=== PATIENT | female | born 1940 | race Caucasian/White ===

== ENCOUNTER 2017-12-30 14:28 | Observation (INO) | payer OTHER, MEDICARE ==
[~2017-12-30] VITALS: Ht 160 cm; Wt 60.3 kg
--- NOTE | 2017-12-30 15:14 | ED SYNCOPE COMPLAINT ---
History of Present Illness General Chief Complaint: General Adult Stated Complaint: SIB MD FOR "BLACK OUT SPELLS" Source: patient, family Exam Limitations: no limitations Vital Signs & Intake/Output Vital Signs & Intake/Output Vital Signs Date Time Temp Pulse Resp B/P B/P Pulse O2 O2 Flow FiO2 Mean Ox Delivery Rate 12/30 1712 62 18 152/75 99 Room Air 12/30 1658 62 159/73 12/30 1627 99 Room Air 12/30 1432 97.5 66 20 182/72 98 Room Air Allergies Coded Allergies: MDX - PCN (penicillin) (PCN (PENICILLIN)) (Intermediate, SCRATCH TEST + 02/17/12 ) Uncoded Allergies: MOLD (Intermediate, SCRATCH TEST + 02/17/12) Triage Note: PT SENT TO ED BY DR VOGT FOR "BLACK OUT SPELLS" X A FEW DAYS. HAPPENS A FEW TIMES A DAY WITH INTERMITTENT PAIN IN HEAD. DENIES ACTUALLY PASSING OUT OR FALLING. Triage Nurses Notes Reviewed? yes HPI: Over the past few days patient has had a few episodes of near syncope. Patient states all of a sudden she'll feel very lightheaded and then hear radio sensation in her years and then get a pounding headache. The symptoms last a few minutes and then go away. Patient denies any chest pain or palpitations. There is no shortness of breath. There is no nausea or vomiting. There is no blurry vision. Patient has not passed out but her states that he has had to catch her twice. Past History Travel History Traveled to [place] past 21 day No Medical History Any Pertinent Medical History? see below for history Musculoskeletal: LYME Other Medical Hx: SCARLET FEVER A CHILD Tetanus Vaccine: 02/17/12 Surgical History Surgical History: non-contributory Psychosocial History What is your primary language Hungarian Tobacco Use: Quit >30 days ago ETOH Use: denies use Illicit Drug Use: denies illicit drug use Family History Hx Contributory? No Review of Systems Review of Systems Constitutional: Reports: no symptoms. EENTM: Reports: no symptoms. Respiratory: Reports: no symptoms. Cardiovascular: Reports: no symptoms. GI: Reports: no symptoms. Genitourinary: Reports: no symptoms. Musculoskeletal: Reports: no symptoms. Skin: Reports: no symptoms. Neurological/Psychological: Reports: see HPI, headache. All Other Systems: Reviewed and Negative Physical Exam Physical Exam General Appearance: well developed/nourished, alert, awake, anxious, mild distress Head: atraumatic, normal appearance Eyes: Bilateral: PERRL, EOMI. Ears, Nose, Throat: normal pharynx, normal ENT inspection, hearing grossly normal Neck: normal inspection, supple, full range of motion Respiratory: normal breath sounds, chest non-tender, no respiratory distress, lungs clear Cardiovascular: regular rate/rhythm, normal peripheral pulses Gastrointestinal: normal bowel sounds, soft, non-tender, no organomegaly Back: normal inspection, normal range of motion Extremities: normal inspection, normal capillary refill, normal range of motion, no edema Psychiatric: awake, alert, oriented x 3 Cranial Nerves: normal hearing, normal speech, PERRL Coordination/Gait: normal gait Motor/Sensory: no motor/sensory deficits Skin: intact, normal color, warm/dry Lymphatic: no anterior cervical anahi Core Measures ACS in differential dx? No CVA/TIA Diagnosis: No Sepsis Present: No Sepsis Focused Exam Completed? No Progress Differential Diagnosis: AMI, orthostatic syncope, pulmonary embolus, sick sinus syndrome Plan of Care: Orders Procedure Date/time Status Heart Healthy Diet 12/[address] in observation 12/30 1823 Active ED Holding Orders 12/30 1823 Active Vital Signs 12/30 1823 Active Code Status 12/30 1823 Active MISTAKE 12/30 1514 Active Telemetry/Information Systems Security Developer 12/30 1514 Active URINALYSIS 12/30 1514 Complete TROPONIN LEVEL 12/30 1514 Complete COMPREHENSIVE METABOLIC PANEL 12/30 1514 Complete CBC WITHOUT DIFFERENTIAL 12/30 1514 Complete EKG 12/30 1430 Active Laboratory Tests 12/30/17 1646: Urine Color YEL, Urine Clarity CLEAR, Urine pH 6.5, Ur Specific [place] 1.020, Urine Protein NEG, Urine Ketones NEG, Urine Nitrite NEG, Urine Bilirubin NEG, Urine Urobilinogen 0.2, Ur Leukocyte Esterase TRACE H, Ur Microscopic SEDIMENT EXAMINED, Urine RBC RARE, Urine WBC 1-3 H, Ur Epithelial Cells RARE, Urine Bacteria RARE H, Urine Mucus RARE, Urine Hemoglobin NEG, Urine Glucose NEG 12/30/17 1538: Anion Gap 10, Estimated GFR > 60, BUN/Creatinine Ratio 28.3 H, Glucose 94, Calcium 9.8, Total Bilirubin 0.9, AST 21, ALT 21, Alkaline Phosphatase 56, Troponin I < 0.01, Total Protein 7.1, Albumin 4.5, Globulin 2.6, Albumin/ Globulin Ratio 1.7, CBC w Diff NO MAN DIFF REQ, RBC 4.88, MCV 89.9, MCH 30.2, MCHC 33.5, RDW 13.1, MPV 8.3, Gran % 52.8, Lymphocytes % 34.4, Monocytes % 10.2 H, Eosinophils % 1.8, Basophils % 0.8, Absolute Granulocytes 3.9, Absolute Lymphocytes 2.6, Absolute Monocytes 0.8 H, Absolute Eosinophils 0.1, Absolute Basophils 0.1 Initial ED EKG: NSR, no ST T wave changes Comments: Discussed with Dr. Youssef, patient to be placed in telemetry observation. Departure Departure Disposition: STILL A PATIENT Condition: Stable Clinical Impression Primary Impression: Near syncope Referrals: Vogt Aquiles ALEXANDER (PCP/Family) Departure Forms: Customer Survey General Discharge Information Observation Note Spoke With: Abdiel ALEXANDER,Nathaniel Physician Advisor Notified: YARELI ALEXANEDR,AQUILES [address] Patient In: Non-ED OBS Care Area Rationale for Observation: My rational for observation is as follows [telemetry monitoring, serial enzymes, cardiology evaluation].
[2017-12-30 15:47] LABS: ABSOLUTE BASOPHIL COUNT 0.1 /CUMM (0.0-0.2); ABSOLUTE EOSINOPHIL COUNT 0.1 /CUMM (0.0-0.7); ABSOLUTE GRANULOCYTE CT 3.9 /CUMM (1.4-6.5); ABSOLUTE LYMPH COUNT 2.6 /CUMM (1.2-3.4); ABSOLUTE MONOCYTE COUNT 0.8 /CUMM (0.10-0.60); BASOPHIL % 0.8 % (0.0-2.0); EOSINOPHIL % 1.8 % (0-5); GRANULOCYTE % 52.8 % (42.2-75.2); HEMATOCRIT 43.9 % (37-47); MEAN CORPUSCULAR HGB 30.2 PG (27.0-31.0); MEAN CORPUSCULAR HGB CONC 33.5 G/DL (33.0-37.0); MEAN CORPUSCULAR VOLUME 89.9 FL (81.0-99.0); MEAN PLATELET VOLUME 8.3 FL (7.4-10.4); PLATELET COUNT 295 /CUMM (130-400); RBC DISTRIBUTION WIDTH 13.1 % (11.5-14.5); RED BLOOD CELL CT 4.88 /CUMM (4.20-5.40); WHITE BLOOD CELL COUNT 7.5 /CUMM (4.8-10.8)
[2017-12-30] MEDS ORDERED: VITAMIN B-121000 MC3 PO (18:33)
[2017-12-30] MEDS ORDERED: MULTIVITAMINS1 EAC9 PO (18:33)
--- NOTE | 2017-12-30 20:31 | History & Physical ---
Naya aGrcia MD 12/30/172028: General Information and HPI MD Statement: I have seen and personally examined GENNA STONE and documented this H&P. The patient is a 77 year old F who presented with a patient stated chief complaint of [dizziness]. Source of Information: patient Exam Limitations: no limitations History of Present Illness: 77-year-old female with past medical history of Lyme disease, skin cancer, right leg varicose vein, prediabetes came to [facility] with complaints of dizziness for the past 4 days. Apparently patient was in usual state of health until a week ago. Patient was doing heavy yard work week ago and felt very weak after that. Patient was sitting in a meeting 3 days ago and felt the room was spinning associated with frontal headache for 5 weighted with right ear pain which continued for 5 minutes. After the dizzy spell patient went home and felt similar episodes of spells multiple times in the past 2 days associated with imbalance [feeling week in his legs] for the past 2 days. Patient took Tylenol yesterday and felt better. The spells were not associated with numbness, tingling, weakness, loss of consciousness, fall, chest pain, chest discomfort. Patient has been feeling dizzy spells past 5 years on and off which she attributes to high normal blood sugar. Patient also had episodes of palpitations and skipped beats with shortness of breath recently. Patient was evaluated for the same in 2012 by cytotechnologist/cytology supervisor who suggested that she has bradycardia and might pacemaker in the future. Patient never followed up with the cytotechnologist/cytology supervisor. Allergies/Medications Home Med list Cyanocobalamin (Vitamin B-12) (Unknown Strength) TABLET (Unknown Dose) PO DAILY SUPPLEMENT (Reported) Multiple Vitamin (Multivitamins) 1 EACH TABLET 1 TAB PO EOD SUPPLEMENT ( Reported) Compliance With Home Meds: FAIR Past History Travel History Traveled to [place] past 21 day No Medical History Neurological: NONE Cardiovascular: NONE Respiratory: NONE Gastrointestinal: NONE Hepatic: NONE Renal: NONE Musculoskeletal: LYME Other Medical Hx: SCARLET FEVER A CHILD Tetanus Vaccine: 02/17/12 Surgical History Surgical History: non-contributory ECHO Results (as available) EF% 65 Past Family/Social History Family History Relations & Conditions if any MOTHER (Heart failure). Psychosocial History Where do you live? Home Who Do You Live With? spouse Services at Home: None Primary Language: Italian Smoking Status: Former Smoker ETOH Use: occasional use Illicit Drug Use: denies illicit drug use Functional Ability ADLs Independent: dressing, eating, toileting, bathing. Ambulation: independent IADLs Independent: shopping, housework, finances, food prep, telephone, transportation , medication admin. Review of Systems Review of Systems Constitutional: Reports: weakness. EENTM: Reports: ear pain. Cardiovascular: Reports: palpitations. Respiratory: Reports: short of breath. GI: Reports: no symptoms. Genitourinary: Reports: no symptoms. Musculoskeletal: Reports: no symptoms. Skin: Reports: no symptoms. Neurological/Psychological: Reports: headache (dizziness). Exam & Diagnostic Data Last 24 Hrs of Vital Signs/I&O Vital Signs Date Time Temp Pulse Resp B/P B/P Pulse O2 O2 Flow FiO2 Mean Ox Delivery Rate 12/30 2046 70 18 152/73 99 Room Air 12/30 1911 89 18 172/69 98 Room Air 12/30 1712 62 18 152/75 99 Room Air 12/30 1658 62 159/73 12/30 1627 99 Room Air 12/30 1432 97.5 66 20 182/72 98 Room Air Intake & Output 12/30 1600 12/30 0800 12/30 0000 Intake Total Output Total Balance Patient 127 lb Weight Weight Reported by Patient Measurement Method Physical Exam General Appearance Alert, Oriented X3, Cooperative, No Acute Distress Skin No Rashes HEENT both ear-wax Cardiovascular Regular Rate, Normal S1, Normal S2, No Murmurs Lungs Clear to Auscultation Abdomen Normal Bowel Sounds, Soft, No Tenderness, No Hepatospenomegaly Neurological Normal Gait, Normal Speech, Strength at 5/5 X4 Ext, Normal Tone, Sensation Intact, Cranial Nerves 3-12 NL Extremities No Clubbing Last 24 Hrs of Labs/Billy: Laboratory Tests 12/30/17 1646: Urine Color YEL, Urine Clarity CLEAR, Urine pH 6.5, Ur Specific [place] 1.020, Urine Protein NEG, Urine Ketones NEG, Urine Nitrite NEG, Urine Bilirubin NEG, Urine Urobilinogen 0.2, Ur Leukocyte Esterase TRACE H, Ur Microscopic SEDIMENT EXAMINED, Urine RBC RARE, Urine WBC 1-3 H, Ur Epithelial Cells RARE, Urine Bacteria RARE H, Urine Mucus RARE, Urine Hemoglobin NEG, Urine Glucose NEG 12/30/17 1538: Anion Gap 10, Estimated GFR > 60, BUN/Creatinine Ratio 28.3 H, Glucose 94, Calcium 9.8, Total Bilirubin 0.9, AST 21, ALT 21, Alkaline Phosphatase 56, Troponin I < 0.01, Total Protein 7.1, Albumin 4.5, Globulin 2.6, Albumin/ Globulin Ratio 1.7, TSH Pending, CBC w Diff NO MAN DIFF REQ, RBC 4.88, MCV 89.9, MCH 30.2, MCHC 33.5, RDW 13.1, MPV 8.3, Gran % 52.8, Lymphocytes % 34.4, Monocytes % 10.2 H, Eosinophils % 1.8, Basophils % 0.8, Absolute Granulocytes 3.9, Absolute Lymphocytes 2.6, Absolute Monocytes 0.8 H, Absolute Eosinophils 0.1, Absolute Basophils 0.1 Diagnostic Data EKG Results Normal sinus rhythm-normal axis. Heart rate 65 Assessment/Plan Assessment: 77-year-old female with past medical history of Lyme disease, skin cancer, right leg varicose vein, prediabetes came to [facility] with complaints of dizziness for the past 4 days. Patient was placed on observation in telemetry for the same. Admission vitals Temperature 97.5, pulse rate 89, respiratory rate 18, blood pressure 159/73---> 172/69, saturating 99 at room air. Admission labs WBC 7.5, hemoglobin 40.7, sodium 139, potassium 4.3, BUN 17, creatinine 0.6, troponin 0.01, calcium .8 Echocardiogram 2012 Left ventricle ejection fraction 65% with abnormal relaxation filling pattern of the left ventricle for age [stage I diastolic dysfunction]. No obvious regional wall motion abnormalities. Problem list 1. Vertigo 2. Presyncope Assessment and plan Patient complains of vertigo, not associated with any recent upper respiratory tract infection, hearing loss, nystagmus, neurological symptoms. This vertigo can be secondary due to benign paroxysmal positional vertigo, vestibular migraine,Though patient denies history of migraines. Patient also gives symptoms of presyncope, malignant arrhythmia needs to be ruled out. We will place her under observation in telemetry for continuous telemetry monitoring and get cardiology consult in a.m. and repeat echocardiogram to rule out any structural abnormalities. If there is any neurological symptoms we will take urgent CT of the head/MRI. Monitor blood pressure. Code-full code Diet-regular diet DVT prophylaxis-heparin subcutaneous As Ranked By This Provider Problem List: 1. Near syncope 2. Vertigo Core Measures/Misc (05/29) Acute Coronary Syndrome ACS Diagnosis: No Congestive Heart Failure Congestive Heart Failure Diagnosis No Cerebrovascular Accident CVA/TIA Diagnosis: No VTE (View Protocol) VTE Risk Factors Age>40 No Mechanical VTE Prophylaxis d/t Other No VTE Pharm Prophylaxis d/t Other Sepsis (View protocol) Sepsis Present: No Eliecer Garcia MD 12/30/172032: Resident Review Statement Resident Statement: examined this patient, discussed with hospital intern, agreed with hospital intern, reviewed EMR data (avail) Other Findings: 77-year-old female with past medical history significant for prediabetes, chronic Lyme disease/meningitis, history of skin cancer status post surgery 3 weeks ago at [facility], 2011 colonoscopy identifying diverticuli and hemorrhoids, and right leg varicose veins came to emergency department with chief complain of presyncope. As per the , patient has been suggested a pacemaker for her low heart rate. Review of system positive for skipped beats, palpitations, loss of balance with dizziness, headaches and pain in right ear. Most of the episodes are brief and stays for seconds, longest one being 5 minutes on Tuesday. No significant visual changes, or extremity weakness. Vitals in emergency department patient afebrile, no significant tachycardia, no tachypnea, systolic blood pressure 175-182 and diastolic 69-75, oxygen saturation of 99% on room air. Negative orthostatics On examination patient was alert and oriented to time person and place not in any acute distress comfortably lying in the bed. Pupils equal and reactive to light, no disorder of extraocular eye movements, patient did feel dizzy while looking up, cranials intact, intact sensation and motor strength in all 4 extremities, no nystagmus, normal reflexes, normal cerebellar function and gait, S1 and S2 audible without any irregularity in the rhythm, normal lung and abdominal examination. Labs significant for leukocytosis, hemoglobin 14.7 hematocrit 43.9, platelets 295, no significant electrolyte abnormality, negative troponin, UA positive for 1-3 WBCs, trace leukocyte esterase positive. EKG showed normal sinus rhythm, heart rate of 66, QTC 406 normal CA interval Patient was placed in observation for the management of following problems Presyncope h/o Bradycardia Cause of patient's recurrent symptoms of presyncope is not entirely clear. It could be secondary to benign positional vertigo given the duration of symptoms for few seconds and worsening of symptoms while looking up. She denies any hearing deficit, tinnitus or recent upper respiratory tract infection. The other possibility to keep in mind his cardiac arrhythmias as patient has been evaluated in the past and known to have bradycardia after heart monitoring and a suggestion of pacemaker was advised. With h/o chronic lyme disease underlying heart blocks need to be ruled out. We will keep the patient on telemetry monitoring and obtain another set of troponin and EKGs. We'll also obtain an echocardiogram as last echocardiogram was in 2012 which showed stage I diastolic dysfunction with an ejection fraction of 65% and right ventricle systolic pressure of 30. Orthostatics negative. In case no significant arrhythmias are noticed overnight, obtain PT consult for vestibular rehabilitation. We will check B12, TSH, Vitamin D, Folic Acid and TSH. Consider imaging of brain if she develops any neurological deficits, to rule out vertebrobasilar stroke. Uncontrolled HTN According to the patient she has never been diagnosed with hypertension. She follows up with her primary care doctor once a year and most of the time blood pressure has been 120s. Patient's blood pressure was higher in emergency department and she attributed it towards then requirement and watching TV. Repeat blood pressure if still high, we will start on low-dose of amlodipine instead of hydrochlorothiazide because of ongoing dizziness and avoid beta- blockers because of tachycardia. An echocardiogram has been ordered. Patient is full code Patient is on regular diet Patient is on pain management Patient is on heparin for DVT prophylaxis Abdiel ALEXANDER, [facility] 12/30/17 2300: General Information and HPI Allergies/Medications Allergies: Coded Allergies: Penicillins (POSITIVE ALLERGY TEST 12/30/17) Uncoded Allergies: FLU VACCINE (Severe, ANAPHYLAXIS 12/30/17) MOLD (Intermediate, SCRATCH TEST + 02/17/12) Attending MD Review Statement Attending Statement Attending MD Statement: examined this patient, discuss w/resident/PA/FIELD MECHANIC/SITE LEAD, agreed w/resident/PA/FIELD MECHANIC/SITE LEAD, discussed with family, reviewed images, amended to note Attending Assessment/Plan: 77 yo F with h/o Lyme meningitis, prediabetes, 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 About 3 days ago, she felt dizziness, room spinning with ringing in the ears, pounding headache and nausea lasting about 5 minutes. She has had recurrent short episodes since then but denies LOC or fall. Her did have to catch her twice to prevent a fall. She continues to feel lightheaded in between the spells. She feels off balance and weak in her legs. Getting up from seated position could precipitate a spell, but she is unable to identify any other precipitating factor. She has been evaluated by a cytotechnologist/cytology supervisor (?Dr. Albert) 2 years ago with an stress test and holter, and was told she has a 'slow heart beat' and may need a pacemaker. But she never followed up. She does report feeling skipped beats. Patient takes no prescription medications. Vitals stable, HR around 60's, orthostats were negative. Exam unremarkable nonfocal neuro. Labs unremarkable. Troponin negative. EKG: sinus rhythm @ 63/min , Qtc 406, no acute changes. Echo (2012): EF 65%, stage 1 diastolic dysfunction. Assessment and plan: 1. Presyncopal episodes 2. Rule out arrhythmias 3. History of Lyme disease 4. Essential hypertension - not on any meds 5. Prediabetes - 23 hour observation on Telemetry - Watch for bradyarrhythmias - Serial EKG and troponin - Obtain echocardiogram - Cardio consult - Obtain previous Holter and stress results - Check TSH, free T4 - If BP remains elevated, will consider amlodipine or hydralazine. Avoid beta blockers until we have ruled out bradyarrhythmias. DVT ppx Lovenox. Full code. Observation Initial Note - I have personally examined JOLENEHERIBERTOGENNA Heath on 12/30/17 at 2300. The disposition of GENNA STONE is uncertain at this time and before a determination can be made, she requires a period of observation for the following reasons [Near syncope]
[2017-12-30 22:30] VITALS: BP 178/80
--- NOTE | 2017-12-31 04:07 | PN-Observation ---
Wellington Ramires MD,Eliecer 12/31/17 0407: Observation Note Observation Note _ I have personally examined GENNA STONE. her disposition is uncertain at this time. Before a determination can be made, she requires continued observation for the following reasons [pre-syncope and uncontrolled HTN]. Assessment/Plan Medical Assessment: 77-year-old female with past medical history significant for prediabetes, chronic Lyme disease/meningitis, history of skin cancer status post surgery 3 weeks ago at [facility], 2011 colonoscopy identifying diverticuli and hemorrhoids, and right leg varicose veins came to emergency department with chief complain of presyncope. As per the , patient has been suggested a pacemaker for her low heart rate. Review of system positive for skipped beats, palpitations, loss of balance with dizziness, headaches and pain in right ear. Most of the episodes are brief and stays for seconds, longest one being 5 minutes on Tuesday. No significant visual changes, or extremity weakness. Overnight, patient afebrile, no significant tachycardia, sinus bradycardia overnight. No tachypnea, systolic blood pressure 178-and diastolic 152, oxygen saturation of 99% on room air. Negative orthostatics Patient was placed in observation for the management of following problems Presyncope and h/o Bradycardia Cause of patient's recurrent symptoms of presyncope is not entirely clear. It could be secondary to benign positional vertigo given the duration of symptoms for few seconds and worsening of symptoms while looking up. She denies any hearing deficit, tinnitus or recent upper respiratory tract infection. The other possibility to keep in mind his cardiac arrhythmias as patient has been evaluated in the past and known to have bradycardia after heart monitoring and a suggestion of pacemaker was advised. We will keep the patient on telemetry monitoring and obtain another set of troponin and EKGs. We'll also obtain an echocardiogram as last echocardiogram was in 2012 which showed stage I diastolic dysfunction with an ejection fraction of 65% and right ventricle systolic pressure of 30. Orthostatics negative. Significant bradycardias, noticed overnight. With h/o chronic lyme disease underlying heart blocks need to be ruled out. obtain PT consult for vestibular rehabilitation. Consider imaging of brain if she develops any neurological deficits, to rule out vertebrobasilar stroke. Uncontrolled HTN According to the patient she has never been diagnosed with hypertension. She follows up with her primary care doctor once a year and most of the time blood pressure has been 120s. Patient's blood pressure was higher in emergency department and she attributed it towards then requirement and watching TV. Repeat blood pressure still high. This started on low-dose of amlodipine instead of hydrochlorothiazide because of ongoing dizziness. An echocardiogram has been ordered. Patient is full code Patient is on regular diet Patient is on pain management Patient is on heparin for DVT prophylaxis Problem List: 1. Vertigo 2. Near syncope DVT/Prophylaxis: pharmacological Subjective Follow-up For: Presyncope Uncontrolled hypertension Tele-Events Since Last Visit: Episodes of sinus bradycardia overnight. Patient's heart rate remained mostly between 50s and 60s. Subjective: Patient remained afebrile overnight. Blood pressure systolic in 150s to 170s and diastolic in 80s Review of Systems Constitutional: Denies: chills, fever. Cardiovascular: Reports: palpitations. Denies: chest pain. Respiratory: Denies: short of breath. Gastrointestinal: Denies: constipation, bloody stool. Genitourinary: Denies: dysuria. Objective Last 24 Hrs of Vital Signs/I&O Vital Signs Date Time Temp Pulse Resp B/P B/P Pulse O2 O2 Flow FiO2 Mean Ox Delivery Rate 12/30 2235 Room Air 12/30 223 97.8 62 18 178/80 95 Room Air 12/30 2046 70 18 152/73 99 Room Air 12/30 1911 89 18 172/69 98 Room Air 12/30 1712 62 18 152/75 99 Room Air 12/30 1658 62 159/73 12/30 1627 99 Room Air 12/30 1432 97.5 66 20 182/72 98 Room Air Intake & Output 12/31 0800 12/31 0000 12/30 1600 Intake Total 60 Output Total Balance 60 Intake, Oral 60 Patient 133 lb 127 lb Weight Weight Reported by Patient Measurement Method Physical Exam General Appearance: Alert, Oriented X3, Cooperative, No Acute Distress Skin: No Breakdown HEENT: Atraumatic, PERRLA, EOMI Neck: No JVD Cardiovascular: Regular Rate, Normal S1, Normal S2, No Murmurs Lungs: Clear to Auscultation, Normal Air Movement Abdomen: Normal Bowel Sounds, Soft, No Tenderness Neurological: Normal Gait, Normal Speech, Strength at 5/5 X4 Ext, Normal Tone, Sensation Intact, Cranial Nerves 3-12 NL, Reflexes 2+ Extremities: No Edema Current Medications: Current Medications Sig/Raul Start time Last Medication Dose Route Stop Time Status Admin Acetaminophen 650 MG Q6 PRN 12/30 2245 AC PO Amlodipine Besylate 5 MG DAILY 12/31 0900 UNVr PO Heparin Sodium 5,000 UNIT Q8 12/30 2234 AC (Porcine) SC Last 24 Hrs of Labs/Mics: Laboratory Tests 12/30/17 2240: Troponin I < 0.01 12/30/17 1646: Urine Color YEL, Urine Clarity CLEAR, Urine pH 6.5, Ur Specific [place] 1.020, Urine Protein NEG, Urine Ketones NEG, Urine Nitrite NEG, Urine Bilirubin NEG, Urine Urobilinogen 0.2, Ur Leukocyte Esterase TRACE H, Ur Microscopic SEDIMENT EXAMINED, Urine RBC RARE, Urine WBC 1-3 H, Ur Epithelial Cells RARE, Urine Bacteria RARE H, Urine Mucus RARE, Urine Hemoglobin NEG, Urine Glucose NEG 12/30/17 1538: Anion Gap 10, Estimated GFR > 60, BUN/Creatinine Ratio 28.3 H, Glucose 94, Calcium 9.8, Total Bilirubin 0.9, AST 21, ALT 21, Alkaline Phosphatase 56, Troponin I < 0.01, Total Protein 7.1, Albumin 4.5, Globulin 2.6, Albumin/ Globulin Ratio 1.7, Vitamin B12 Pending, 25-OH Vitamin D Total 21.5 L, TSH 1.680, CBC w Diff NO MAN DIFF REQ, RBC 4.88, MCV 89.9, MCH 30.2, MCHC 33.5, RDW 13.1, MPV 8.3, Gran % 52.8, Lymphocytes % 34.4, Monocytes % 10.2 H, Eosinophils % 1.8, Basophils % 0.8, Absolute Granulocytes 3.9, Absolute Lymphocytes 2.6, Absolute Monocytes 0.8 H, Absolute Eosinophils 0.1, Absolute Basophils 0.1 Zurdo Fair 12/31/17 0923: Attending Addendum Attending Brief Note Patient here for dizziness epsiode placed in observation status for telemetry monitoring. No new complaints. She has appoitnemtn at [place] in Tuesday. Plan for cardio consult, serial cardiac enzymes negative. orthostats. gi/dvt prophyalxis full code.
[2017-12-31 06:37] VITALS: BP 130/60
[2017-12-31 08:33] LABS: ABSOLUTE BASOPHIL COUNT 0 /CUMM (0.0-0.2); ABSOLUTE EOSINOPHIL COUNT 0.2 /CUMM (0.0-0.7); ABSOLUTE LYMPH COUNT 2.5 /CUMM (1.2-3.4); ABSOLUTE MONOCYTE COUNT 0.6 /CUMM (0.10-0.60); BASOPHIL % 0.4 % (0.0-2.0); EOSINOPHIL % 3.1 % (0-5); GRANULOCYTE % 47.4 % (42.2-75.2); HEMATOCRIT 40.2 % (37-47); MEAN CORPUSCULAR HGB 30.2 PG (27.0-31.0); MEAN CORPUSCULAR HGB CONC 34.1 G/DL (33.0-37.0); MEAN CORPUSCULAR VOLUME 88.4 FL (81.0-99.0); MEAN PLATELET VOLUME 8.7 FL (7.4-10.4); PLATELET COUNT 273 /CUMM (130-400); RBC DISTRIBUTION WIDTH 13.1 % (11.5-14.5); RED BLOOD CELL CT 4.54 /CUMM (4.20-5.40); WHITE BLOOD CELL COUNT 6.4 /CUMM (4.8-10.8)
[2017-12-31 14:40] VITALS: BP 128/60
--- NOTE | 2017-12-31 17:28 | Cons- Cardiology ---
General Information and HPI Consulting Request Date of Consult: 12/31/17 Requested By: Abdiel ALEXANDER,Nathaniel History of Present Illness: This patient is a 77 year old female with history of Lyme disease and pre- diabetes. Over the past few days this patient has noted a dizzy sensation although she has not experienced any true syncope. She recalls sitting at a meeting when the room began to spin. She does feel better if she remains still after she begins to feel this way although there is no definite exacerbation by bending or movement of her head to suggest a labyrinthitis. There are no associated palpitations with this dizziness. Otherwise the patient denies chest pain, pressure, tightness or shortness of breath. It should be noted that this patient has had very brief palpitations in the past described as a fluttering for a second or two. This is a very longstanding symptom that she has had for years and was not noted at the time of her current episode of dizziness. It should also be noted that this patient has had a slow heart rate that she has known about for a long time which has been asymptomatic. Allergies/Medications Allergies: Coded Allergies: influenza virus vaccine ts 9905-2285 (4 yr up) (From FLUVIRIN [id number] (PF)) ( Severe, FLU VACCINE - ANAPHYLAXIS 12/31/17) influenza virus vaccine tv splt 2012- (4 yr,up) (From FLUVIRIN) (Severe, FLU VACCINE - ANAPHYLAXIS 12/31/17) mold (Intermediate, MOLD - SCRATCH TEST + 12/31/17) Penicillins (POSITIVE ALLERGY TEST 12/30/17) Home Med List: Cyanocobalamin (Vitamin B-12) (Unknown Strength) TABLET (Unknown Dose) PO DAILY SUPPLEMENT (Reported) Multiple Vitamin (Multivitamins) 1 EACH TABLET 1 TAB PO EOD SUPPLEMENT ( Reported) Review of Systems Review of Systems: headache Past History Travel History Traveled to [place] past 21 day No Medical History Blood Transfusion Hx: No Neurological: NONE EENT: NONE Cardiovascular: NONE Respiratory: NONE Gastrointestinal: NONE Hepatic: NONE Renal: NONE Musculoskeletal: LYME Psychiatric: DEPRESSION-SEASONAL Endocrine: LOW BLOOD SUGAR Blood Disorders: NONE Cancer(s): NONE RN OCCUPATIONAL HEALTH/Reproductive: NONE 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 Psychosocial History Where Do You Live? Home Who Do You Live With? spouse Services at Home: None Primary Language: Kyrgyz Smoking Status: Former Smoker ETOH Use: occasional use Illicit Drug Use: denies illicit drug use Functional Ability ADLs Independent: dressing, eating, toileting, bathing. Ambulation: independent IADLs Independent: shopping, housework, finances, food prep, telephone, transportation , medication admin. ECHO Results (as available) EF% 65 Exam & Diagnostic Data Vital Signs and I&O Vital Signs Date Time Temp Pulse Resp B/P B/P Pulse O2 O2 Flow FiO2 Mean Ox Delivery Rate 12/31 1440 97.8 65 20 128/60 96 Room Air 12/31 0924 134/70 12/31 0637 97.9 67 20 130/60 96 Room Air 12/30 2235 Room Air 12/30 2230 97.8 62 18 178/80 95 Room Air 12/30 2046 70 18 152/73 99 Room Air 12/30 1911 89 18 172/69 98 Room Air Intake & Output 12/31 1600 12/31 0800 12/31 0000 12/30 1600 12/30 0800 12/30 0000 Intake Total 240 60 Output Total Balance 240 60 Intake, Oral 240 60 Number 0 Bowel Movements Patient 133 lb 127 lb Weight Weight Reported by Patient Measurement Method Physical Exam: General: WD/WN female in NAD; alert and oriented x 3 HEENT: NC/AT, PERRL, EOMI Neck: no JVD, no carotid bruit Heart: RRR w/o murmur Lungs: clear bilaterally ABdomen: soft, NT, +be bowel sounds Extemities: no edema Assessment/Plan Assessment/Plan * This patient has dizziness as well as bradycardia. We will obtain an echocardiogram to assess for any structural heart disease. We will also check a Lyme titer, TSH and free T4. * Monitor this patient on telemetry for symptomatic bradycardia. If present, this patient will need a permanent pacemaker. I have a lower suspicion of a labyrinthitis. Consult Acknowledgment - Thank you for your consult request.
[2017-12-31 22:48] VITALS: BP 118/60
[2018-01-01 06:48] VITALS: BP 116/60
[2018-01-01 09:50] VITALS: BP 116/60
--- NOTE | 2018-01-01 12:39 | PN- Housestaff ---
Kendra ALEXANDER,Michelle 01/01/18 1238: Subjective Follow-up For: Presyncope and history of bradycardia Uncontrolled hypertension Complaints: no complaints Tele-Events Since Last Visit: Normal sinus rhythm 55-70 Subjective: No overnight events, patient still complains of lightheadedness but denies chest pain, shortness of breath. Patient is eager to leave today as she has a skin biopsy appointment tomorrow at [facility]. Review of Systems Constitutional: Reports: no symptoms. EENTM: Reports: no symptoms. Cardiovascular: Reports: no symptoms. Respiratory: Reports: cough. Skin: Reports: lesions. Neurological/Psychological: Reports: see HPI (lightheadedness). Objective Last 24 Hrs of Vital Signs/I&O Vital Signs Date Time Temp Pulse Resp B/P B/P Pulse O2 O2 Flow FiO2 Mean Ox Delivery Rate 01/01 0950 76 116/60 01/01 0648 98.4 76 20 116/60 96 Room Air 12/31 2248 99.0 67 16 118/60 94 Room Air Intake & Output 01/01 1600 01/01 0800 01/01 0000 Intake Total 240 240 Output Total Balance 240 240 Intake, Oral 240 240 Number 0 Bowel Movements Physical Exam General Appearance: Alert, Oriented X3, Cooperative, No Acute Distress Skin: patient has right nare bandage with skin biopsy lesion underneath. Skin Temp/Moisture Exam: Warm/Dry Sepsis Skin Exam (color): Normal for Ethnicity HEENT: Atraumatic, PERRLA, EOMI, Mucous Membr. moist/pink Cardiovascular: Regular Rate, Normal S1, Normal S2, No Murmurs Lungs: Clear to Auscultation, Normal Air Movement Abdomen: Normal Bowel Sounds, Soft, No Tenderness Neurological: Normal Speech Extremities: No Clubbing, No Cyanosis, No Edema, Normal Pulses, No Tenderness/ Swelling Vascular: Normal Pulses, Pulses Symmetrical Current Medications: Current Medications Sig/Raul Start time Last Medication Dose Route Stop Time Status Admin Acetaminophen 650 MG Q6 PRN 12/30 2245 DCD PO Amlodipine Besylate 5 MG DAILY 12/31 0900 DCD 12/31 PO 0924 Heparin Sodium 5,000 UNIT Q8 12/30 2234 DCD (Porcine) SC Assessment/Plan Assessment: 77-year-old female with past medical history significant for prediabetes, chronic Lyme disease/meningitis, history of skin cancer status post surgery 3 weeks ago at [facility], 2011 colonoscopy identifying diverticuli and hemorrhoids, and right leg varicose veins came to emergency department with chief complain of presyncope. As per the , patient has been suggested a pacemaker for her low heart rate. Review of system positive for skipped beats, palpitations, loss of balance with dizziness, headaches and pain in right ear. Most of the episodes are brief and stays for seconds, longest one being 5 minutes on Tuesday. No significant visual changes, or extremity weakness. Patient was placed in observation for the management of following problems Presyncope and h/o Bradycardia Cause of patient's recurrent symptoms of presyncope is not entirely clear. It could be secondary to benign positional vertigo given the duration of symptoms for few seconds and worsening of symptoms while looking up. She denies any hearing deficit, tinnitus or recent upper respiratory tract infection but continues to have very mild symptoms of dizziness and lightheadedness, no obvious correlation betweenn it and her bradycardia. Last echocardiogram was in 2012 which showed stage I diastolic dysfunction with an ejection fraction of 65% and right ventricle systolic pressure of 30. Orthostatics negative. Continued to be bradycardic overnight. With h/o chronic lyme disease underlying heart blocks need to be ruled out. Thyroid tests normal. -PT consult for vestibular rehabilitation. -Follow up echo -Follow up lyme titers -Consider imaging of brain if she develops any neurological deficits, to rule out vertebrobasilar stroke. Currently no neurological deficits. -As per cardiology patient is cleared to be sent home. She likely has a minor viral symptom that is resolving. She is to follow up outpatient. Uncontrolled HTN According to the patient she has never been diagnosed with hypertension. She follows up with her primary care doctor once a year and most of the time blood pressure has been 120s. Patient's blood pressure was higher in emergency department and she attributed it towards then requirement and watching TV. Overnight blood pressure well controlled 116/60. She is started on amlodipine instead of hydrochlorothiazide because of ongoing dizziness. -Discharge on 5mg amlodipine -Blood pressure test kit on dc Patient is full code Patient is on regular diet Patient is on pain management Patient is on heparin for DVT prophylaxis Problem List: 1. Vertigo 2. Near syncope Pain Ratin Pain Location: na Pain Goal: Remain pain free Pain Plan: na Tomorrow's Labs & Rationales: cbc bep Zurdo Fair 01/01/18 1329: Attending MD Review Statement Attending Statement Attending MD Statement: examined this patient, discuss w/resident/PA/UMBRELLA SUPERVISOR, agreed w/resident/PA/UMBRELLA SUPERVISOR, discussed with family, reviewed EMR data (avail), discussed with nursing, discussed with case mgmt, reviewed images, amended to note Attending Assessment/Plan: Patient here for dizziness epsiode placed in observation status for telemetry monitoring. No new complaints. cardio consulted, serial cardiac enzymes negative for LA. Overnight HR 60s. Wishes to leave home. gi/dvt prophyalxis full code.
[2018-01-01] MEDS ORDERED: AMLODIPINE BESYL5 M1 PO (14:16)
[2018-01-01] MEDS ORDERED: BLOOD PRESSURE1 EAC1 N (14:17)
--- NOTE | 2018-01-01 14:20 | Patient Discharge Instructions ---
Discharge Instructions General Discharge Information You were seen/treated for: Slow heart rate You had these procedures: monitoring on the quality assurance monitor final Watch for these problems: 1. dizziness 2. nausea or vomiting 3. chest pain 4. shortness of breath Special Instructions: 1. Please check your BP as we discussed 2. Please follow up with your primary care provider in one week 3. You will likely need an outpatient echocardiogram 4. Your Lyme test is still pending. Please follow up with your PCP. Diet Continue normal diet: Yes Acute Coronary Syndrome Inclusion Criteria At DC or during hospital stay patient has or had the following: ACS DIAGNOSIS No Discharge Core Measures Meds if any: Prescribed or Continued at Discharge Meds if any: NOT Prescribed or Continued at Discharge Congestive Heart Failure Inclusion Criteria At DC or during hospital stay patient has or had the following: CHF DIAGNOSIS No Discharge Core Measures Meds if any: Prescribed or Continued at Discharge Meds if any: NOT Prescribed or Continued at Discharge Cerebrovascular accident Inclusion Criteria At DC or during hospital stay patient has or had the following: CVA/TIA Diagnosis No Discharge Core Measures Meds if any: Prescribed or Continued at Discharge Meds if any: NOT Prescribed or Continued at Discharge Venous thromboembolism Inclusion Criteria VTE Diagnosis No VTE Type NONE VTE Confirmed by (Test) NONE Discharge Core Measures - Per Current guidelines, there needs to be overlap - treatment for the first 5 days of Warfarin therapy. - If discharged on Warfarin prior to 5 days of - overlap therapy, the patient will need to be - assessed for post discharge needs including - *Post discharge parental anticoagulation - *Warfarin and/or parental anticoagulation education - *Follow up date to check INR post discharge At least 5 days overlap therapy as Inpatient No Meds if any: Prescribed or Continued at Discharge Note: Overlap Therapy is Warfarin and Anticoagulant Meds if any: NOT Prescribed or Continued at Discharge
--- NOTE | 2018-01-01 14:51 | PN- Cardiology ---
Subjective Subjective: * No complaints * mild bradycardia at night when presumably asleep. No bradycardia is association with dizziness. Objective Vital Signs and I&Os Vital Signs Date Time Temp Pulse Resp B/P B/P Pulse O2 O2 Flow FiO2 Mean Ox Delivery Rate 01/01 0950 76 116/60 01/01 0648 98.4 76 20 116/60 96 Room Air 12/31 2248 99.0 67 16 118/60 94 Room Air Intake & Output 01/01 1600 01/01 0800 01/01 0000 12/31 1600 12/31 0800 12/31 0000 Intake Total 240 240 240 60 Output Total Balance 240 240 240 60 Intake, Oral 240 240 240 60 Number 0 0 Bowel Movements Patient 133 lb Weight Physical Exam: General: WD/WN female in NAD; alert and oriented x 3 HEENT: NC/AT, PERRL, EOMI Neck: no JVD, no carotid bruit Heart: RRR w/o murmur Lungs: clear bilaterally ABdomen: soft, NT, +be bowel sounds Extemities: no edema Assessment/Plan Assessment/Plan * This patient has dizziness as well as bradycardia. The dizziness is improved and there is no correlation between her mild bradycardia and her symptoms. TFT's are normal and a Lyme titer is pending. I suspect this patient has a minor viral syndrome that is resolving. We will discharge the patient to home with follow up in the office in one week. Continue telemetry? No
--- NOTE | 2018-01-02 07:30 | ECHOCARDIOGRAM REPORT ---
GENNA STONE Age: 77 : 1940 Gender: F Exam Date: 01/01/2018 09:53 Exam Location: [address] Ht (in): 63 Wt (lb): 127 BSA: 1.61 BP: 116 / 60 Ordering Physician: Eliecer Garcia MD Referring Physician: Aquiles Youssef MD, PhD Technologist: [facility] Room Number: [id number] Indications: ARRHYTHMIAS Rhythm: Sinus Technical Quality: good FINDINGS Left Ventricle Normal left ventricular size, wall thickness and systolic function with no obvious regional wall motion abnormalities. Diastolic filling pattern is consistent with impaired LV relaxation. The ejection fraction is visually estimated at 60%. Right Ventricle The right ventricle is normal in size and function. Right Atrium The right atrium is normal in size. Left Atrium The left atrium is normal in size. The interatrial septum is intact. Mitral Valve The mitral valve is normal in structure and function. There is trace mitral regurgitation. Aortic Valve Structurally normal aortic valve without significant sclerosis or stenosis. There is no aortic regurgitation. Tricuspid Valve The tricuspid valve is normal in structure and function. There is trace tricuspid regurgitation. Pulmonary artery systolic pressure is normal. Pulmonic Valve Structurally normal pulmonic valve. There is no pulmonic regurgitation. Pericardium Normal pericardium without effusion. No pleural effusion. Great Vessels Normal aortic root dimension. The aortic arch and great vessels are well seen and are normal. CONCLUSIONS 1. Normal EF of 60% with impaired LV relaxation. 2. Trace mitral regurgitation. 3. Trace tricuspid regurgitation. Aquiles Youssef M.D. (Electronically Signed) Final Date: 02 January 2018 07:29 MEASUREMENTS (Male / Female) Normal Values 2D ECHO LV Diastolic Diameter PLAX 3.6 cm 4.2 - 5.9 / 3.9 - 5.3 cm LV Systolic Diameter PLAX 2.4 cm 2.1 - 4.0 cm LV Fractional Shortening PLAX 33.3 % 25 - 46 % LV Ejection Fraction 2D Teich 63.0 % IVS Diastolic Thickness 0.9 cm LVPW Diastolic Thickness 0.9 cm LV Relative Wall Thickness 0.5 LVOT Diameter 2.0 cm Aortic Root Diameter 2.3 cm LA Systolic Diameter LX 3.2 cm 3.0 - 4.0 / 2.7 - 3.8 cm LA Volume 42.0 cm 18 - 58 / 22 - 52 cm Ascending Aorta Diameter 3.3 cm DOPPLER AV Peak Velocity 161.0 cm/s AV Peak Gradient 10.4 mmHg AV Mean Velocity 114.0 cm/s AV Mean Gradient 6.0 mmHg AV Velocity Time Integral 37.8 cm LVOT Peak Velocity 82.0 cm/s LVOT Peak Gradient 2.7 mmHg LVOT Mean Velocity 62.4 cm/s LVOT Mean Gradient 2.0 mmHg LVOT Velocity Time Integral 20.8 cm LVOT Stroke Volume 65.3 cm AV Area Cont Eq vti 1.7 cm AV Area Cont Eq pk 1.6 cm MV Peak Velocity 116.0 cm/s MV Peak Gradient 5.4 mmHg MV Mean Velocity 69.6 cm/s MV Mean Gradient 2.0 mmHg Mitral E Point Velocity 89.8 cm/s Mitral A Point Velocity 110.0 cm/s Mitral E to A Ratio 0.8 MV Deceleration Time 296.0 ms TR Peak Velocity 182.0 cm/s TR Peak Gradient 13.2 mmHg Right Atrial Pressure 5.0 mmHg Pulmonary Artery Systolic Pressu 18.2 mmHg Right Ventricular Systolic Press 18.2 mmHg PV Peak Velocity 86.9 cm/s PV Peak Gradient 3.0 mmHg PV Mean Velocity 61.9 cm/s PV Mean Gradient 2.0 mmHg PV Velocity Time Integral 19.6 cm LV E' Lateral Velocity 8.2 cm/s Mitral E to LV E' Lateral Ratio 11.0 LV E' Septal Velocity 8.6 cm/s Mitral E to LV E' Septal Ratio 10.5
== END 2018-01-01 14:40 ==
LOC: ERH 14:28 → 1NO 18:23 → ERHI 18:23 → ENRESERV 21:26 → ENTRNSPT 22:04 → EDTRNSPT 22:13 → EDTRNSPTSTS 22:13 → 1NO 22:22 → CMPTRNSPT 22:23 → ENPENDDIS 01-01 14:22 → 1NO 01-01 14:40
PROVIDERS: Emergency Medicine; Student in an Organized Health Care Education/Training Program
DX: R55 Syncope and collapse (principal); Z87.891 Personal history of nicotine dependence; Z85.820 Personal history of malignant melanoma of skin; I10 Essential (primary) hypertension; F33.9 Major depressive disorder, recurrent, unspecified; R00.1 Bradycardia, unspecified; Z79.899 Other long term (current) drug therapy
CPT/HCPCS: 86618; 36592; 81001; 82436; 93005; 93010; 93306; G0378; J1644

== ENCOUNTER 2018-01-16 09:34 | Emergency (ER) | payer OTHER, MEDICARE ==
[~2018-01-16] VITALS: Ht 160 cm; Wt 58.1 kg
[~2018-01-16 09:34] MED LIST: AMLODIPINE BESYL5 M1 PO; BLOOD PRESSURE1 EAC1 N; MULTIVITAMINS1 EAC9 PO; VITAMIN B-121000 MC3 PO
--- NOTE | 2018-01-16 12:44 | ED MVC/FALL/TRAUMA COMPLAINT ---
History of Present Illness General Chief Complaint: Fall Stated Complaint: FALL OFF STEP LADDER Source: patient Exam Limitations: no limitations Vital Signs & Intake/Output Vital Signs & Intake/Output Vital Signs Date Time Temp Pulse Resp B/P B/P Pulse O2 O2 Flow FiO2 Mean Ox Delivery Rate 01/16 1428 97.6 53 18 142/64 97 Room Air 01/16 1313 Room Air 01/16 0947 98.6 59 18 190/71 98 Room Air Allergies Coded Allergies: influenza virus vaccine ts [id number] (4 yr up) (From FLUVIRIN [id number] (PF)) ( Severe, FLU VACCINE - ANAPHYLAXIS 12/31/17) influenza virus vaccine tv splt 2012- (4 yr,up) (From FLUVIRIN) (Severe, FLU VACCINE - ANAPHYLAXIS 12/31/17) mold (Intermediate, MOLD - SCRATCH TEST + 12/31/17) Penicillins (POSITIVE ALLERGY TEST 12/30/17) Reconcile Medications Amlodipine Besylate 5 MG TABLET 1 TAB PO DAILY HTN Hydrocodone/Acetaminophen (Vicodin 5-300 MG Tablet) 5 MG-300 MG TABLET 1 TAB PO BID PRN PAIN DO NOT OPERATE MOTOR VEHICLES WITH THIS MEDICATION Triage Note: 77 YO FEMALE TO TRIAGE FOR EVAL S/P FALL LAST PM AFTER 2 STEP LADDER. STATES SHE SHE FELL BACKWARDS LADNING ON HER L BOTTOCKS, STATES SHE HIT HER L SIDE OF RIB CAGE INTO THE CORNER OF HER DRESSER. STATES HAS BEEN USING ICE AND MOTRIN WITHOUT RELIEF. DENIES SOB, STATES PAIN AT L RIB CAGE ON INSPIRATION. STATES SHE HAS A BRUISE ON HER L BOTTCKS, UNABLE TO VISUALIZE IN TRIAGE. Triage Nurses Notes Reviewed? yes Onset: Abrupt Duration: constant Timing: recent history Severity: severe Severity Numbers: 7 Method of Injury: direct blow, fall Loss of Consciousness: no loss of consciousness HPI: Patient is a 77-year-old female with a past medical history of Lyme disease, skin cancer, varicose veins prediabetes and a recent admission and discharge from [place] emergency room for concerns of symptomatically bradycardia patient' s echocardiogram was essentially unremarkable EF noted to be 60%, patient states that yesterday she was in her normal state of health on a stepladder in her home or patient tried amylase offer stepladder misstepped and fell to the left lateral aspect of her buttock and abdomen and chest region. Patient struck her body to her bed in her room where she is unknown whether or not she hit her head however no loss of consciousness had occurred and no preceding episode of lightheaded sensation or dizziness. Pain still continued today patient took ibuprofen yesterday with mild relief of symptoms. Patient states that lumbar spine movements deep violation makes worse. Denies any headache neck pain extremity pain. Patient is not taking anticoagulation therapy. (Héctor Marie) Past History Travel History Traveled to [place] past 21 day No Medical History Any Pertinent Medical History? 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 Hx Contributory? No (Héctor Marie) Review of Systems Review of Systems Constitutional: Reports: no symptoms. Eyes: Reports: no symptoms. Ears, Nose, Throat, Mouth: Reports: no symptoms. Respiratory: Reports: no symptoms. Cardiovascular: Reports: no symptoms. Gastrointestinal/Abdominal: Reports: no symptoms. Genitourinary: Reports: no symptoms. Musculoskeletal: Reports: see HPI, back pain. Skin: Reports: see HPI. Neurological/Psychological: Reports: no symptoms. All Other Systems: Reviewed and Negative (Héctor Marie) Physical Exam Physical Exam General Appearance: mild distress Head: atraumatic Eyes: Bilateral: normal appearance, PERRL, EOMI. Ears, Nose, Throat, Mouth: hearing grossly normal, moist mucous membrane Neck: normal inspection, full range of motion, no midline tenderness Respiratory: normal breath sounds, no respiratory distress Cardiovascular: regular rate/rhythm Peripheral Pulses: 2+ radial (R) Gastrointestinal: tenderness Back: evidence of trauma Extremities: normal range of motion Neurologic/Psych: no motor/sensory deficits, awake, alert, oriented x 3, normal gait, normal mood/affect Skin: intact Diagram Body: 1) Noted point tenderness and ecchymosis Core Measures ACS in differential dx? No CVA/TIA Diagnosis No Sepsis Present: No Sepsis Focused Exam Completed? No (Olga HART,Héctor) Progress Differential Diagnosis: abd injury, C/T/L spine injury, ext injury, ICH, pelvis injury, pnemothorax, spinal cord injury Plan of Care: Orders Procedure Date/time Status URINALYSIS 01/17 1156 Complete Laboratory Tests 01/16/18 1200: Urine Color YEL, Urine Clarity CLEAR, Urine pH 6.5, Ur Specific [place] 1.010, Urine Protein NEG, Urine Ketones NEG, Urine Nitrite NEG, Urine Bilirubin NEG, Urine Urobilinogen 0.2, Ur Leukocyte Esterase NEG, Ur Microscopic EXAM NOT REQUIRED, Urine Hemoglobin NEG, Urine Glucose NEG Patient upon initial examination was in no respiratory distress CT scans were resulted no acute findings however I did discussed with patient the incidental findings AND GAVE patient COPIES of imaging and patient was aware and discussed the importance of close monitoring of CT scan results, upon discharge patient looks well had relief of pain Discussed patient with Dr. Josue who agrees Diagnostic Imaging: Viewed by Me: CT Scan. Radiology Impression: no fracture Comments: PATIENT: GENNA STONE PRESENT AGE: 77 PATIENT ACCOUNT NO: [id number] : 38 LOCATION: [facility] ORDERING PHYSICIAN: Raymond HART SERVICE DATE: 01/16/18-1155 EXAM TYPE: CAT - CT ABD & PELVIS W/O IV CONTRAS; CT CHEST WO IV CONTRAST EXAMINATION: CT CHEST WITHOUT IV CONTRAST CT ABDOMEN AND PELVIS WITHOUT IV CONTRAST CLINICAL INFORMATION: Trauma. Fall from ladder. COMPARISON: None TECHNIQUE: Noncontrast multidetector CT imaging examination of the chest, abdomen and pelvis was performed. Axial images are displayed at 0.625 mm and 5 mm slice thickness. Coronal and sagittal reformatted images were generated at the technologist's workstation and submitted for review. DLP: 352 mGy-cm FINDINGS: CHEST - LUNGS and PLEURA: Trachea and central airways are widely patent and normal in caliber. Scattered linear and hazy opacities of atelectasis in each lung without mass, consolidation or edema. No pneumothorax or pleural effusion. MEDIASTINUM: The heart size is normal. Mild atherosclerotic calcification of coronary arteries. Atherosclerosis of the thoracic aorta without aneurysm. A trace amount of pericardial fluid is noted. No mediastinal hematoma. The esophagus and thyroid gland are grossly unremarkable. There is mild haziness of the mediastinal fat LYMPHATICS: Multiple small lymph nodes are present within the mediastinum. A mildly enlarged precarinal lymph node with fatty hilum measures 1.1 cm AP dimension. No internal mammary, hilar or axillary lymphadenopathy. CHEST WALL/BONES: No evidence of an acute, displaced rib fracture. Sternum is intact. There is mild, degenerative anterolisthesis at C7-T1, T1-T2 and T2-T3. Otherwise, the thoracic vertebra have normal height and alignment. No evidence of acute fracture or traumatic subluxation within the thoracic spine. ABDOMEN AND PELVIS - HEPATOBILIARY: Gallbladder is underdistended and contains at least one small calcified stone. No intrahepatic or extrahepatic bile duct dilatation. Liver is unremarkable. PANCREAS: Unremarkable. SPLEEN: Unremarkable. ADRENAL GLANDS: Unremarkable. KIDNEYS, URETERS, BLADDER: Unremarkable. GI TRACT AND PERITONEUM: Loops of bowel are normal in caliber. Mild diverticulosis of the sigmoid colon. No evidence of acute inflammation or obstruction along the gastrointestinal tract. No ascites or pneumoperitoneum. There is haziness of central mesentery and the mesenteric lymph nodes measure up to 0.8 cm short axis dimension. 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 ABDOMINAL WALL: Unremarkable. VASCULAR: Atherosclerotic calcification of the abdominal aorta without aneurysm. No retroperitoneal hematoma. LYMPH NODES: No pathologic sized area portal, retroperitoneal, iliac or inguinal lymph nodes. The mesenteric lymph nodes are mildly enlarged, as noted above, there is haziness of the central mesentery. There is mild haziness of the para-aortic/retroperitoneal fat, as well. PELVIC VISCERA: The uterus and adnexa are grossly unremarkable. No pelvic free fluid. OSSEOUS STRUCTURES: Multilevel disc degeneration and facet osteoarthritis of the lumbar spine. Minimal degenerative retrolisthesis of L4 on L5. There is 0.6 cm of grade 1 anterolisthesis of L5 on S1. Pelvic bones and proximal femurs are intact. Mild osteoarthritis of the hips. IMPRESSION: 1. No acute traumatic pathology is detected within the chest, abdomen or pelvis. 2. Multiple small lymph nodes are present within the mediastinum. The largest mediastinal lymph node is a precarinal lymph node measuring 1.1 cm AP. Within the abdomen, mild lymphadenopathy of the mesentery is noted. Also, there is haziness of mesenteric fat and retroperitoneal fat. The mesenteric findings are suggestive of mesenteric panniculitis. However, the specific source of mild lymphadenopathy in the mediastinum is uncertain. Further clinical workup may be required. These findings are incidental and unrelated to patient's history of fall from a ladder. DICTATED BY: Leonardo Elizondo MD DATE/TIME DICTATED:01/16/181432 SERVER DEVELOPER:TAMARA DATE/TIME TRANSCRIBED:01/16/181432 CONFIDENTIAL, DO NOT COPY WITHOUT APPROPRIATE AUTHORIZATION. <Electronically signed in Other Vendor System> SIGNED BY: Leonardo Elizondo MD 01/16/18 0742 PATIENT: GENNA STONE PRESENT AGE: 77 PATIENT ACCOUNT NO: [id number] : 38 LOCATION: [facility] ORDERING PHYSICIAN: Raymond HART SERVICE DATE: 01/16/18 EXAM TYPE: CAT - CT CERV SPINE WO IV CONTRAST; CT HEAD WO IV CONTRAST EXAM: CT scan of the head and cervical spine. INDICATION: 77-year-old female patient fell off of ladder TECHNIQUE: A noncontrast CT scan was performed from the skull base to the vertex. A noncontrast CT scan of the cervical spine was performed from the base of the skull through T1 at 2.5 mm and 1.25 mm collimation. Coronal and sagittal reformats were obtained at the acquisition workstation. Dose length product is 916 mGy-cm. COMPARISON: None FINDINGS: Head: There is no evidence of acute intracranial hemorrhage or territorial infarction. Marroquin to white matter differentiation is preserved. No abnormal mass effect or midline shift is seen. No extra-axial fluid collections are identified. No abnormal attenuation is seen within the brain parenchyma. The ventricles and sulcal spaces are proportional without hydrocephalus. No acute osseous or soft tissue abnormalities. The mastoid air cells and visualized portions of the remaining paranasal sinuses are well-aerated. Cervical Spine: The atlantooccipital articulation is normal. Cartilaginous calcifications are present. The atlantoaxial interval is within normal limits. There is anatomic alignment and position of the vertebral bodies and posterior elements except for mild retrolisthesis of C3 on C4 attributed to significant degenerative disc disease and facet arthropathy. Otherwise, there is no indication of vertebral subluxation. Significant degenerative disc disease is seen at C4-C5 C5-C6 and C6-C7 with juxta-articular bony sclerosis and marginal osteophyte formation. There is facet arthritis bilaterally in the mid cervical spine. The height of the vertebral bodies is maintained. There is no prevertebral soft tissue swelling. A 1 cm nodule is located in the left lobe the thyroid gland. The visualized portions of the soft tissues [<are unremarkable>]. Small collateral vessels are seen in both supraclavicular regions, of unknown significance. The lung apices demonstrate mild groundglass opacity perhaps related to small airways disease. IMPRESSION: 1. No acute intracranial pathology. 2. Cervical spondylosis and degenerative disc disease. No fracture or subluxation. 3. 1 cm left lobe thyroid nodule. (Héctor Marie) Departure Departure Disposition: HOME OR SELF CARE Condition: Stable Clinical Impression Primary Impression: Fall Secondary Impressions: Contusion of rib on left side, Low back strain, Lymphadenopathy, mediastinal, Thyroid nodule Referrals: Vogt Aquiles ALEXANDER (PCP/Family) Additional Instructions: As discussed begin icing the area directly 20 minutes every 2 hours, begin over- the-counter NSAIDs such as Naprosyn or Motrin for pain, begin the prescription of Vicodin for breakthrough pain, prescription is waiting at [facility]. Follow-up with your primary care doctor this week for further evaluation and treatment of your symptoms and the incidental findings reported on the CT scan that were provided to you. If symptoms worsen return to emergency room Departure Forms: Customer Survey General Discharge Information Prescriptions: Current Visit Scripts Hydrocodone/Acetaminophen (Vicodin 5-300 MG Tablet) 1 TAB PO BID PRN PAIN #10 TAB DO NOT OPERATE MOTOR VEHICLES WITH THIS MEDICATION (Héctor Marie) PA/REAL ESTATE ACCOUNT EXECUTIVE Co-Sign Statement Statement: ED Attending supervision documentation- [X] I saw and evaluated the patient. I have also reviewed all the pertinent lab results and diagnostic results. I agree with the findings and the plan of care as documented in the PA's/REAL ESTATE ACCOUNT EXECUTIVE's documentation. [] I have reviewed the ED Record and agree with the PA's/REAL ESTATE ACCOUNT EXECUTIVE's documentation. [] Additions or exceptions (if any) to the PAs/REAL ESTATE ACCOUNT EXECUTIVE's note and plan are summarized below: [] (Jeffry Josue DO)
[2018-01-16 14:28] VITALS: BP 142/64
--- NOTE | 2018-01-16 14:52 | CT SCAN REPORT ---
EXAMINATION: CT CHEST WITHOUT IV CONTRAST CT ABDOMEN AND PELVIS WITHOUT IV CONTRAST CLINICAL INFORMATION: Trauma. Fall from ladder. COMPARISON: None TECHNIQUE: Noncontrast multidetector CT imaging examination of the chest, abdomen and pelvis was performed. Axial images are displayed at 0.625 mm and 5 mm slice thickness. Coronal and sagittal reformatted images were generated at the technologist's workstation and submitted for review. DLP: 352 mGy-cm FINDINGS: CHEST - LUNGS and PLEURA: Trachea and central airways are widely patent and normal in caliber. Scattered linear and hazy opacities of atelectasis in each lung without mass, consolidation or edema. No pneumothorax or pleural effusion. MEDIASTINUM: The heart size is normal. Mild atherosclerotic calcification of coronary arteries. Atherosclerosis of the thoracic aorta without aneurysm. A trace amount of pericardial fluid is noted. No mediastinal hematoma. The esophagus and thyroid gland are grossly unremarkable. There is mild haziness of the mediastinal fat LYMPHATICS: Multiple small lymph nodes are present within the mediastinum. A mildly enlarged precarinal lymph node with fatty hilum measures 1.1 cm AP dimension. No internal mammary, hilar or axillary lymphadenopathy. CHEST WALL/BONES: No evidence of an acute, displaced rib fracture. Sternum is intact. There is mild, degenerative anterolisthesis at C7-T1, T1-T2 and T2-T3. Otherwise, the thoracic vertebra have normal height and alignment. No evidence of acute fracture or traumatic subluxation within the thoracic spine. ABDOMEN AND PELVIS - HEPATOBILIARY: Gallbladder is underdistended and contains at least one small calcified stone. No intrahepatic or extrahepatic bile duct dilatation. Liver is unremarkable. PANCREAS: Unremarkable. SPLEEN: Unremarkable. ADRENAL GLANDS: Unremarkable. KIDNEYS, URETERS, BLADDER: Unremarkable. GI TRACT AND PERITONEUM: Loops of bowel are normal in caliber. Mild diverticulosis of the sigmoid colon. No evidence of acute inflammation or obstruction along the gastrointestinal tract. No ascites or pneumoperitoneum. There is haziness of central mesentery and the mesenteric lymph nodes measure up to 0.8 cm short axis dimension. 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 ABDOMINAL WALL: Unremarkable. VASCULAR: Atherosclerotic calcification of the abdominal aorta without aneurysm. No retroperitoneal hematoma. LYMPH NODES: No pathologic sized area portal, retroperitoneal, iliac or inguinal lymph nodes. The mesenteric lymph nodes are mildly enlarged, as noted above, there is haziness of the central mesentery. There is mild haziness of the para-aortic/retroperitoneal fat, as well. PELVIC VISCERA: The uterus and adnexa are grossly unremarkable. No pelvic free fluid. OSSEOUS STRUCTURES: Multilevel disc degeneration and facet osteoarthritis of the lumbar spine. Minimal degenerative retrolisthesis of L4 on L5. There is 0.6 cm of grade 1 anterolisthesis of L5 on S1. Pelvic bones and proximal femurs are intact. Mild osteoarthritis of the hips. IMPRESSION: 1. No acute traumatic pathology is detected within the chest, abdomen or pelvis. 2. Multiple small lymph nodes are present within the mediastinum. The largest mediastinal lymph node is a precarinal lymph node measuring 1.1 cm AP. Within the abdomen, mild lymphadenopathy of the mesentery is noted. Also, there is haziness of mesenteric fat and retroperitoneal fat. The mesenteric findings are suggestive of mesenteric panniculitis. However, the specific source of mild lymphadenopathy in the mediastinum is uncertain. Further clinical workup may be required. These findings are incidental and unrelated to patient's history of fall from a ladder.
--- NOTE | 2018-01-16 14:57 | CT SCAN REPORT ---
EXAM: CT scan of the head and cervical spine. INDICATION: 77-year-old female patient fell off of ladder TECHNIQUE: A noncontrast CT scan was performed from the skull base to the vertex. A noncontrast CT scan of the cervical spine was performed from the base of the skull through T1 at 2.5 mm and 1.25 mm collimation. Coronal and sagittal reformats were obtained at the acquisition workstation. Dose length product is 916 mGy-cm. COMPARISON: None FINDINGS: Head: There is no evidence of acute intracranial hemorrhage or territorial infarction. Marroquin to white matter differentiation is preserved. No abnormal mass effect or midline shift is seen. No extra-axial fluid collections are identified. No abnormal attenuation is seen within the brain parenchyma. The ventricles and sulcal spaces are proportional without hydrocephalus. No acute osseous or soft tissue abnormalities. The mastoid air cells and visualized portions of the remaining paranasal sinuses are well-aerated. Cervical Spine: The atlantooccipital articulation is normal. Cartilaginous calcifications are present. The atlantoaxial interval is within normal limits. There is anatomic alignment and position of the vertebral bodies and posterior elements except for mild retrolisthesis of C3 on C4 attributed to significant degenerative disc disease and facet arthropathy. Otherwise, there is no indication of vertebral subluxation. Significant degenerative disc disease is seen at C4-C5 C5-C6 and C6-C7 with juxta-articular bony sclerosis and marginal osteophyte formation. There is facet arthritis bilaterally in the mid cervical spine. The height of the vertebral bodies is maintained. There is no prevertebral soft tissue swelling. A 1 cm nodule is located in the left lobe the thyroid gland. The visualized portions of the soft tissues [<are unremarkable>]. Small collateral vessels are seen in both supraclavicular regions, of unknown significance. The lung apices demonstrate mild groundglass opacity perhaps related to small airways disease. IMPRESSION: 1. No acute intracranial pathology. 2. Cervical spondylosis and degenerative disc disease. No fracture or subluxation. 3. 1 cm left lobe thyroid nodule.
[2018-01-16] MEDS ORDERED: VICODIN 5-3001 EACH PO (15:07)
== END 2018-01-16 15:22 ==
LOC: ERH 09:34
DX: S39.012A Strain of muscle, fascia and tendon of lower back, initial encounter (principal); S20.212A Contusion of left front wall of thorax, initial encounter; R59.1 Generalized enlarged lymph nodes; E04.1 Nontoxic single thyroid nodule; W11.XXXA Fall on and from ladder, initial encounter; Y92.009 Unspecified place in unspecified non-institutional (private) residence as the place of occurrence of the external cause; Y92.9 Unspecified place or not applicable
CPT/HCPCS: 74176; 81003